=== PATIENT | male | born 1995 | race Caucasian/White ===

== ENCOUNTER 2017-09-18 22:31 | Emergency (ER) | payer SELFPAY ==
[2017-09-18 22:39] VITALS: BP 109/63; PULSE 68; RESP 18; TEMP 97.7; O2SAT 99
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
--- NOTE | 2017-09-19 08:49 | RAD ---
Right hand three views History: Pain and swelling. Comparison: None available. Findings: Ovoid ossific density seen adjacent to the ulnar aspect of the 2nd metacarpal head concerning for a possible displaced fracture deformity. Clinical correlation to site of pain. Remainder of the visualized osseous structures appear grossly preserved. Impression: Ovoid ossific density seen adjacent to the ulnar aspect of the 2nd metacarpal head concerning for a possible displaced fracture deformity. Clinical correlation to site of pain.
== END 2017-09-19 00:08 | disposition home or self-care (01) ==
LOC: C.ER 22:31
DX: S62.390A Other fracture of second metacarpal bone, right hand, initial encounter for closed fracture (principal); V18.0XXA Pedal cycle driver injured in noncollision transport accident in nontraffic accident, initial encounter; Y93.55 Activity, bike riding